=== PATIENT | male | born 1955 | race Caucasian/White ===

== ENCOUNTER → 2017-03-31 09:13 | Outpatient (CLI) | payer OTHER, SELFPAY ==
[2017-03-31 10:08] LABS: AST(SGOT) 39 U/L (15-37); Alanine Aminotransfer ALT/SGPT 70 U/L (16-61); Albumin, Serum 3.8 g/dL (3.2-5.0); Alkaline Phosphatase 96 U/L (45-117); Anion Gap 9 (5-15); BUN 17 mg/dL (7-18); BUN/Creat Ratio 14.2 RATIO (10-20); Calcium,Total 8.9 mg/dL (8.5-10.1); Chloride 97 mmol/L (98-107); Cholesterol 205 mg/dL (200); EST Glomerular Filtration Rate 65 mL/min (>60); Est Glom Filt Rate - Afr Amer 78 mL/min (>60); Globulin 3.7 g/dL (2.2-4.2); Glucose 210 mg/dL (74-106); High Density Lipoprotein 35 mg/dL; Potassium 4.3 mmol/L (3.5-5.1); Protein, Total 7.5 g/dL (6.4-8.2); Sodium Level 133 mmol/L (136-145); Triglycerides 242 mg/dL; Very Low Density Lipoprotein 48 mg/dL (5-40)
[2017-03-31 10:26] LABS: Hemoglobin A1c 9.1 % (4.2-6.3)
== END ==
PROVIDERS: Visit Provider Preventive Medicine Occupational Medicine
DX: E78.4 Other hyperlipidemia (principal); E13.42 Other specified diabetes mellitus with diabetic polyneuropathy; Z12.5 Encounter for screening for malignant neoplasm of prostate
CPT/HCPCS: 36415; 80053; 80061; 83036; 84153; G0103

== ENCOUNTER → 2017-05-30 10:50 | Outpatient (CLI) | payer OTHER, SELFPAY ==
--- NOTE | 2017-05-30 10:54 | RAD_ITS ---
STUDY: X-RAY CHEST REASON FOR EXAM: Male, 62 years old. Evaluation for pneumonia. TECHNIQUE: PA and lateral views of the chest. COMPARISON: None. FINDINGS: The lungs are clear and expanded. There is no demonstrated pleural abnormality. Normal size heart. Normal mediastinum and victorino. Normal visualized pulmonary arteries. There is atherosclerotic calcification of the aortic arch with tortuosity. There are diffuse degenerative changes of the visualized thoracic spine. Normal visualized ribs, clavicles, and shoulders. There is no demonstrated abnormality of the visualized soft tissue structures of the upper abdomen. RAD/Chest PA and Lateral IMPRESSION: No acute cardiopulmonary findings. Negative for consolidation, focal atelectasis, cardiomegaly or pleural effusion. Electronically Signed: Swapna Nair MD at 23:27 EDT , Service support ,
== END ==
PROVIDERS: Family Provider Family Medicine; PCP Family Medicine; Visit Provider Family Medicine
DX: J18.9 Pneumonia, unspecified organism (principal)
CPT/HCPCS: 71046

== ENCOUNTER → 2017-06-04 08:51 | Outpatient (CLI) | payer OTHER, SELFPAY ==
[2017-06-04 10:10] LABS: Hemoglobin A1c 9.6 % (4.2-6.3)
[2017-06-04 10:12] LABS: AST(SGOT) 26 U/L (15-37); Alanine Aminotransfer ALT/SGPT 44 U/L (16-61); Albumin, Serum 3.7 g/dL (3.2-5.0); Alkaline Phosphatase 86 U/L (45-117); Anion Gap 10 (5-15); BUN 21 mg/dL (7-18); BUN/Creat Ratio 15.2 RATIO (10-20); Calcium,Total 8.8 mg/dL (8.5-10.1); Chloride 97 mmol/L (98-107); Cholesterol 178 mg/dL (200); Creatinine, Serum 1.38 mg/dL (0.70-1.30); EST Glomerular Filtration Rate 55 mL/min (>60); Est Glom Filt Rate - Afr Amer 67 mL/min (>60); Globulin 3.6 g/dL (2.2-4.2); Glucose 210 mg/dL (74-106); High Density Lipoprotein 28 mg/dL; Potassium 4.4 mmol/L (3.5-5.1); Protein, Total 7.3 g/dL (6.4-8.2); Sodium Level 138 mmol/L (136-145); Thyroid Stim Hormone (TSH) 2.58 uIU/mL (0.358-3.74); Triglycerides 347 mg/dL; Very Low Density Lipoprotein 69 mg/dL (5-40)
== END ==
PROVIDERS: Family Provider Family Medicine; PCP Family Medicine; Visit Provider Family Medicine
DX: E11.9 Type 2 diabetes mellitus without complications (principal); R97.20 Elevated prostate specific antigen [PSA]; Z12.5 Encounter for screening for malignant neoplasm of prostate
CPT/HCPCS: 36415; 80053; 80061; 83036; 84403; 84443

== ENCOUNTER → 2018-04-03 09:13 | Outpatient (CLI) | payer MEDICARE, OTHER, SELFPAY ==
[2018-04-03 10:41] LABS: Anion Gap 8 (5-15); BUN 23 mg/dL (7-18); BUN/Creat Ratio 17.4 RATIO (10-20); Calcium,Total 9.1 mg/dL (8.5-10.1); Chloride 100 mmol/L (98-107); Cholesterol 211 mg/dL (200); Creatinine, Serum 1.32 mg/dL (0.70-1.30); EST Glomerular Filtration Rate 58 mL/min (>60); Est Glom Filt Rate - Afr Amer 70 mL/min (>60); Glucose 123 mg/dL (74-106); High Density Lipoprotein 28 mg/dL; PSA,Total - Annual Screen 6.41 ng/mL (0.00-4.00); Potassium 4.7 mmol/L (3.5-5.1); Sodium Level 135 mmol/L (136-145); Triglycerides 375 mg/dL; Very Low Density Lipoprotein 75 mg/dL (5-40)
== END ==
PROVIDERS: Family Provider Family Medicine; PCP Family Medicine; Visit Provider Family Medicine
DX: I10 Essential (primary) hypertension (principal); E78.5 Hyperlipidemia, unspecified; E11.9 Type 2 diabetes mellitus without complications; R97.20 Elevated prostate specific antigen [PSA]; Z12.5 Encounter for screening for malignant neoplasm of prostate
CPT/HCPCS: 36415; 80048; 80061; 84153; G0103

== ENCOUNTER → 2018-04-22 08:57 | Outpatient (CLI) | payer MEDICARE, OTHER, SELFPAY ==
--- NOTE | 2018-04-22 09:02 | CDU_ITS ---
Reason For Study: CAROTID STENOSIS Rt. Velocities/BP Lt. Velocities/BP Prox CCA 83/16 cm/sec. Prox CCA 88/21 cm/sec. Mid CCA 50/15 cm/sec. Mid CCA 80/18 cm/sec. Dist CCA 59/19 cm/sec. Dist CCA 60/14 cm/sec. Prox ICA 24/12 cm/sec. Prox ICA 51/21 cm/sec. Mid ICA 40/16 cm/sec. Mid ICA 61/24 cm/sec. Dist ICA 105/41 cm/sec. Dist ICA 76/28 cm/sec. Distal ICA velocities may be Lt. ICA/CCA = 1.0. overestimated due to tortuosity. Prox ECA 82/15 cm/sec. Rt. ICA/CCA = .81. Lt. Vert. 33/13 cm/sec. Prox ECA 117/20 cm/sec. Rt. Vert. 24/9 cm/sec. Right Extracranial There is intimal thickening but no significant atherosclerotic plaque noted in the right common carotid artery. There is intimal thickening but no significant atherosclerotic plaque noted in the right internal carotid artery. There is heterogeneous, smooth atherosclerotic plaque noted in the right external carotid artery. Antegrade flow is noted in the right vertebral artery. Left Extracranial There is homogeneous, smooth atherosclerotic plaque noted in the left common carotid artery. The left internal carotid artery is not adequately visualized to characterize plaque. There is intimal thickening but no significant atherosclerotic plaque noted in the left external carotid artery. Antegrade flow is noted in the left vertebral artery. There is heterogeneous, irregular atherosclerotic plaque noted in the left bulb. Procedure Carotid Duplex 44451. Technically difficult study due to pt body habitus. Exam performed in department. Interpretation Summary Mild (<50%) stenosis right extracranial internal carotid. Mild (<50%) stenosis left extracranial internal carotid. Flow within the vertebral arteries is antegrade bilaterally. Ordering Physician: Emeterio Painter Referring Physician: NA YATES Performed By: Lindsay Lewis, CARMELA, RVT
== END ==
PROVIDERS: Family Provider Family Medicine; PCP Family Medicine; Referring Provider Ophthalmology; Visit Provider Ophthalmology
DX: H35.82 Retinal ischemia (principal); I65.29 Occlusion and stenosis of unspecified carotid artery
CPT/HCPCS: 93880

== ENCOUNTER → 2018-10-02 | Outpatient (CLI) | payer MEDICARE, OTHER, SELFPAY ==
--- NOTE | 2018-10-02 10:59 | RAD_ITS ---
STUDY: X-RAY - LUMBAR SPINE REASON FOR EXAM: Male, 63 years old. Low back pain x4 days TECHNIQUE: 5 view(s) of the lumbar spine were obtained. COMPARISON: None FINDINGS: Normal lumbar lordosis. There is no substantial scoliosis. There is a normal alignment of the vertebrae. There is multilevel endplate spondylosis of the lumbar vertebrae. There is multi-level degenerative disc disease with multi-level disc space narrowing. There is no demonstrated fracture. The soft tissue structures are unremarkable. RAD/L/S Spine Min 4 Views IMPRESSION: Degenerative changes of the spine, as detailed above. Electronically Signed: Bruce Lawton MD at 22:20 EDT , Service support ,
== END | disposition home or self-care (01) ==
LOC: MTRAD 10:58
PROVIDERS: Family Provider Family Medicine; PCP Family Medicine; Referring Provider Family Medicine; Visit Provider Family Medicine
DX: M54.5 Low back pain (principal)
CPT/HCPCS: 72110

== ENCOUNTER → 2018-10-08 | Outpatient (CLI) | payer MEDICARE, OTHER, SELFPAY ==
[2018-10-08 12:42] LABS: ALB/GLOB Ratio 0.9 RATIO (0.9-2.4); AST(SGOT) 13 U/L (15-37); Alanine Aminotransfer ALT/SGPT 29 U/L (16-61); Albumin, Serum 3.5 g/dL (3.2-5.0); Alkaline Phosphatase 74 U/L (45-117); Anion Gap 2 (5-15); BUN 28 mg/dL (7-18); BUN/Creat Ratio 20.9 RATIO (10-20); Calcium,Total 8.9 mg/dL (8.5-10.1); Chloride 101 mmol/L (98-107); Cholesterol 153 mg/dL (200); Creatinine, Serum 1.34 mg/dL (0.70-1.30); EST Glomerular Filtration Rate 57 mL/min (>60); Est Glom Filt Rate - Afr Amer 69 mL/min (>60); Globulin 3.7 g/dL (2.2-4.2); Glucose 98 mg/dL (74-106); High Density Lipoprotein 33 mg/dL; Protein, Total 7.2 g/dL (6.4-8.2); Sodium Level 135 mmol/L (136-145); Triglycerides 300 mg/dL; Very Low Density Lipoprotein 60 mg/dL (5-40)
== END | disposition home or self-care (01) ==
LOC: MFPLAB 11:04
PROVIDERS: Family Provider Family Medicine; PCP Family Medicine; Referring Provider Family Medicine; Visit Provider Family Medicine
DX: E11.9 Type 2 diabetes mellitus without complications (principal)
CPT/HCPCS: 36415; 80053; 80061

== ENCOUNTER → 2019-01-08 09:28 | Outpatient (CLI) | payer MEDICARE, OTHER, SELFPAY ==
[2019-01-08 10:39] LABS: AST(SGOT) 22 U/L (15-37); Alanine Aminotransfer ALT/SGPT 26 U/L (16-61); Albumin, Serum 3.8 g/dL (3.2-5.0); Alkaline Phosphatase 88 U/L (45-117); Anion Gap 6 (5-15); BUN 17 mg/dL (7-18); BUN/Creat Ratio 12.7 RATIO (10-20); Bilirubin, Direct 0.15 mg/dL (0.00-0.30); Calcium,Total 9.2 mg/dL (8.5-10.1); Chloride 104 mmol/L (98-107); Creatinine, Serum 1.34 mg/dL (0.70-1.30); EST Glomerular Filtration Rate 57 mL/min (>60); Est Glom Filt Rate - Afr Amer 69 mL/min (>60); Globulin 3.8 g/dL (2.2-4.2); Glucose 108 mg/dL (74-106); Potassium 4.5 mmol/L (3.5-5.1); Protein, Total 7.6 g/dL (6.4-8.2); Sodium Level 140 mmol/L (136-145)
[2019-01-08 12:45] LABS: Microalbumin:Creatinine Ratio 186.9 mg/g CRE (<30 mg/g CRE)
== END ==
PROVIDERS: Family Provider Family Medicine; PCP Family Medicine; Referring Provider Family Medicine; Visit Provider Family Medicine
DX: E11.9 Type 2 diabetes mellitus without complications (principal)
CPT/HCPCS: 36415; 80048; 80076; 82043; 82570

== ENCOUNTER → 2019-07-09 10:07 | Outpatient (CLI) | payer MEDICARE, OTHER, SELFPAY ==
[2019-07-09 13:06] LABS: Anion Gap 7 (5-15); BUN 19 mg/dL (7-18); BUN/Creat Ratio 14.2 RATIO (10-20); Calcium,Total 9.3 mg/dL (8.5-10.1); Chloride 101 mmol/L (98-107); Cholesterol 170 mg/dL (200); Creatinine, Serum 1.34 mg/dL (0.70-1.30); EST Glomerular Filtration Rate 57 mL/min (>60); Est Glom Filt Rate - Afr Amer 69 mL/min (>60); Glucose 116 mg/dL (74-106); High Density Lipoprotein 33 mg/dL; PSA,Total - Annual Screen 9.96 ng/mL (0.00-4.00); Potassium 4.3 mmol/L (3.5-5.1); Sodium Level 136 mmol/L (136-145); Thyroid Stim Hormone (TSH) 1.77 uIU/mL (0.358-3.74); Triglycerides 178 mg/dL; Very Low Density Lipoprotein 36 mg/dL (5-40)
== END ==
PROVIDERS: PCP Family Medicine; Referring Provider Family Medicine; Visit Provider Family Medicine
DX: E11.9 Type 2 diabetes mellitus without complications (principal); R97.20 Elevated prostate specific antigen [PSA]; Z12.5 Encounter for screening for malignant neoplasm of prostate
CPT/HCPCS: 36415; 80048; 80061; 84153; 84443; G0103

== ENCOUNTER → 2019-08-17 14:28 | Outpatient (CLI) | payer MEDICARE, OTHER, SELFPAY ==
--- NOTE | 2019-08-17 | IMM_PTH ---
PATIENT: ROSY BOB LOC: [facility] U#:[id number] AGE/SX: 70/M ROOM: RE08/17/[address]: Dr. Dell Brown MD : 1955 BED: DIS: SPEC #: [id number] RECD: 08/18/19 13:37 STATUS: MELANIE REQ #: [id number] DISHA: 08/17/19 00:[address]: Dell Brown DEPT: IMMUNOHISTOCHEMISTRY RECD BY: Beatriz Villaseñor ENTERED: 08/18/19 13:39 SP TYPE: IMMUNO OTHR DR: Dr. Jak Yu MD Tissues: B - PROSTATE RIGHT C - PROSTATE RIGHT D - PROSTATE LEFT F - PROSTATE LEFT Procedures: 34BE12 (add) P40 (add) PSAP (add) 34BE12 (initial) PHYSICIAN & INSTITUTION [place] [id number] SPECIMEN INFORMATION: Tissue Source: B - Right prostate, mid, C - Right prostate, base, D - Left prostate, apex, F - Left prostate, base Clinical Info: Elevated PSA Specimen Number: [id number] B, C, D & F CPT code: 42605, 68158 x11 METHODOLOGY: Deparaffinized sections of prefer/formalin-fixed tissue or PAP/DQ stained slides are incubated with monoclonal/polyclonal antibodies/oligonucleotide probes. Localization is made via biotin free immunoperoxidase method. Appropriate controls are performed and reacted as expected. Results on target cell population are indicated in the following table: RESULTS: ANTIBODY / CLONE RESULT Block B 34BE12 (34BE12) negative P40 (BC28) negative PSAP (PASE/4LJ) positive Block C 34BE12 (34BE12) negative P40 (BC28) negative PSAP (PASE/4LJ) positive Block D 34BE12 (34BE12) negative P40 (BC28) negative PSAP (PASE/4LJ) positive Block F 34BE12 (34BE12) negative P40 (BC28) negative PSAP (PASE/4LJ) positive These tests were developed and their performance characteristics determined by [facility]. They may not have been cleared or approved by the U.S. Food and Drug Administration. The FDA has determined that such clearance or approval is not necessary. The above immunohistochemical/dualISH markers are ordered and reviewed by the Pathologist. INTERPRETATION: B. Right prostate, mid, core biopsy: Adenocarcinoma. C. Right prostate, base, core biopsy: Adenocarcinoma. D. Left prostate, apex, core biopsy: Adenocarcinoma. F. Left prostate, base, core biopsy: Adenocarcinoma. AM:kulwant 08/19/19
--- NOTE | 2019-08-17 | PROSBIL_PTH ---
PATIENT: ROSY BOB LOC: [facility] U#:[id number] AGE/SX: 70/M ROOM: RE08/17/[address]: Dr. Dell Brown MD : 1955 BED: DIS: SPEC #: [id number] RECD: 08/17/19 14:32 STATUS: MELANIE VLADIMIR #: [id number] DISHA: 08/17/19 00:[address]: Dell Brown DEPT: SURGICAL PATHOLOGY RECD BY: Mich Wagner ENTERED: 08/17/19 14:32 SP TYPE: PROST BX SUSANNAH DR: Dr. Jak Yu MD Tissues: A - PROSTATE RIGHT B - PROSTATE RIGHT C - PROSTATE RIGHT D - PROSTATE LEFT E - PROSTATE LEFT F - PROSTATE LEFT Procedures: PROSTATE BX HEADER OPERATION: Prostate biopsy PRE-OP DIAGNOSIS: Elevated PSA TISSUE SUBMITTED: A - Right apex, B - Right mid, C - Right base, D - Left apex, E - Left mid, F - Left base MICROSCOPIC DIAGNOSIS A. Right prostate, apex, core biopsy: Benign prostatic tissue. B. Right prostate, mid, core biopsy: Adenocarcinoma. [place] grade: 8 (5+3) Cores involved: 2 out of 2 Tissue involved: 75% Greatest tumor length: 10 mm Perineural invasion: Present See comment. C. Right prostate, base, core biopsy: Adenocarcinoma. Koby grade: 8 (5+3) Cores involved: 2 out of 2 Tissue involved: 95% Greatest tumor length: 13 mm Perineural invasion: Present See comment. D. Left prostate, apex, core biopsy: Adenocarcinoma. Koby grade: 6 (3+3) Cores involved: 1 out of 1 Tissue involved: 2% Greatest tumor length: 0.5 mm Perineural invasion: Present See comment. E. Left prostate, mid, core biopsy: Benign prostatic tissue. F. Left prostate, base, core biopsy: Adenocarcinoma. Koby grade: 8 (5+3) Cores involved: 1 out of 2 Tissue involved: 40% Greatest tumor length: 6.5 mm, discontinuous Perineural invasion: Present See comment. AM:kulwant 08/18/19 COMMENT B, C, D & F - Immunohistochemistry ([id number]) supports the above diagnosis. Case has been reviewed in consultation with Dr. Lockwood who concurs with the above diagnosis. IDC:SJ MICROSCOPIC DESCRIPTION Slides are reviewed. GROSS DESCRIPTION A - Received is one container designated prostate, right apex. The specimen consists of one elongated fragment of light echols-white soft tissue measuring 8 mm in length and 0.1 cm in diameter. The specimen is totally submitted in one cassette. B - Received is one container designated prostate, right mid. The specimen consists of two elongated fragments of light echols-white soft tissue each measuring 1 cm in length and 0.1 cm in diameter. The specimen is totally submitted in one cassette. C - Received is one container designated prostate, right base. The specimen consists of two elongated fragments of light echols-white soft tissue each measuring 1.5 cm in length and 0.1 cm in diameter. The specimen is totally submitted in one cassette. D - Received is one container designated prostate, left apex. The specimen consists of one elongated fragment of light echols-white soft tissue measuring 1 cm in length and 0.1 cm in diameter. The specimen is totally submitted in one cassette. E - Received is one container designated prostate, left mid. The specimen consists of two elongated fragments of light echols-white soft tissue each measuring 1 cm in length and 0.1 cm in diameter. The specimen is totally submitted in one cassette. F - Received is one container designated prostate, left base. The specimen consists of two elongated fragments of light echols-white soft tissue each measuring 1 cm in length and 0.1 cm in diameter. The specimen is totally submitted in one cassette. / AM:kulwant 08/17/19 TC:0 [facility]: [id number]
== END ==
PROVIDERS: PCP Family Medicine; Visit Provider Urology
DX: R97.20 Elevated prostate specific antigen [PSA] (principal)
CPT/HCPCS: 88305; 88341; 88342; G0416

== ENCOUNTER → 2019-09-06 10:26 | Outpatient (CLI) | payer MEDICARE, OTHER, SELFPAY ==
--- NOTE | 2019-09-06 10:30 | NM_ITS ---
CLINICAL: 64-year-old male with reported history of carcinoma of the prostate. WHOLE BODY 99m Tc MDP RADIONUCLIDE BONE SCINTIGRAPHY COMPARISON: Plain film radiograph report lumbar spine 10/02/2018 FINDINGS: Following the intravenous administration of approximately 25.0 mCi of 99m Tc MDP, whole body bone images reveal: 1. Increased radiopharmaceutical concentration is identified in the upper-mid cervical spine posteriorly on the left, lower cervical spine posteriorly on the right, sternoclavicular, acromioclavicular and glenohumeral compartments of both shoulders, first, seventh, ninth-10th thoracic, second and third lumbar vertebra, left posterior sacrum, bilateral visualized wrists, knees bilaterally, left ankle, the right-left midfoot. 2. The remaining skeletal structures are scintigraphically unremarkable with normal-appearing renal images and urinary bladder activity identified. NM/Bone Scan Whole Body IMPRESSION: 1. The increase in radiopharmaceutical concentration identified in the cervical, thoracic and lumbar spine, bilateral shoulders, sacrum, both wrists, right-left knees, the left ankle, midfoot bilaterally is commensurate with degenerative arthritis. Plain film radiography correlation may be of benefit in the region of the left ankle. 2. There is no definitive typical scintigraphic evidence of diffuse axial skeletal metastatic disease on the current examination. Electronically Signed: Juan Pablo Soriano DO at 22:26 EDT Tel , Service support ,
== END ==
PROVIDERS: PCP Family Medicine; Referring Provider Urology; Visit Provider Urology
DX: C61 Malignant neoplasm of prostate (principal)
CPT/HCPCS: 78306

== ENCOUNTER → 2019-09-09 14:50 | Outpatient (CLI) | payer MEDICARE, OTHER, SELFPAY ==
--- NOTE | 2019-09-09 15:12 | CT_ITS ---
STUDY: CT ABDOMEN AND PELVIS WITH CONTRAST REASON FOR EXAM: Male, 64 years old. Newly diagnosed prostate cancer. RADIATION DOSAGE (If Supplied By Facility): CTDIvol = ( 21.66 ) mGy, DLP = ( 2286.95 ) mGycm TECHNIQUE: Transaxial images were obtained from the dome of the diaphragm to the symphysis pubis without oral contrast. IV 100mL Isovue-300 was administered. Sagittal and coronal images were reconstructed. Individualized dose optimization techniques were used for this CT. COMPARISON: None. FINDINGS: The visualized lung bases are unremarkable. The visualized portions of the heart are within normal limits. Coronary artery calcifications are noted. Normal liver. Normal gallbladder and extrahepatic biliary system. Normal spleen. Normal pancreas. Normal bilateral adrenal glands. Normal right kidney. Normal left kidney. Normal ureters. Normal visualized stomach. Normal small intestine. Normal colon. The appendix is visualized and appears normal. Minimal atherosclerotic changes of the thoracic aorta without aneurysm. Normal inferior vena cava. Normal retroperitoneum. Normal urinary bladder. The prostate is mild enlarged. There is no evidence of local extension. There is nonspecific subcentimeter adenopathy. The largest node on the right measures 1.2 x 0.8 x 0.9 cm (image 98 series 2. The largest node on the left measures 1.1 x 1.1 x 1.0 cm present image 96, series 2). There is no free air or free fluid within the peritoneal cavity. No stranding in subcutaneous fat of the anterior abdominal wall. Question subcutaneous injection. There is a right inguinal hernia omental fat. There are degenerative changes of the lumbar spine with mild scoliosis. There is marked disc space narrowing and sclerosis at the L1-2 disc level. No lytic or blastic lesions are seen within the visualized osseous structures. CT/Abdomen/Pelvis WITH Contrast IMPRESSION: 1. Enlarged prostate. 2. Small bilateral pelvic lymph nodes. 3. No evidence of bony metastases or distant spread. 4. Right inguinal hernia. Electronically Signed: Kurt Danielle DO at 16:36 EDT Tel [phone], Service support ,
[2019-09-09 15:26] LABS: CREATININE FINGERSTICK 0.8 mg/dL (0.70-1.30)
== END ==
PROVIDERS: PCP Family Medicine; Referring Provider Urology; Visit Provider Urology
DX: C61 Malignant neoplasm of prostate (principal)
CPT/HCPCS: 74177; Q9967

== ENCOUNTER 2019-11-10 05:56 | Day surgery (SDC) | payer MEDICARE, OTHER, SELFPAY ==
--- NOTE | 2019-11-03 10:39 | EKG12_ITS ---
Test Reason : PREOP Blood Pressure : / mmHG Vent. Rate : 072 BPM Atrial Rate : 072 BPM P-R Int : 184 ms QRS Dur : 116 ms QT Int : 390 ms P-R-T Axes : 229 246 155 degrees QTc Int : 427 ms Unusual P axis, possible ectopic atrial rhythm Abnormal ECG Confirmed by KARUNA EDWARD, LEIGH ([id number]), rewrite editor LYNDA PINEDA ([id number]) on 11/04/2019 3:40:43 PM Referred By: Dell Brown Confirmed By:KELSEA BECKMAN MD
[2019-11-03 11:34] LABS: Hematocrit 45.9 % (40-54); Mean Corp Hgb Conc 32.7 g/dL (32-36); Mean Corpuscular Hgb 32.8 pg (27.0-32.0); Mean Corpuscular Volume 100.2 fL (80-94); Mean Platelet Vol. 9.7 fl (6.2-12.0); Platelet Count 229 K/mm3 (150-450); RBC Distribution Width CV 11.9 % (11.6-14.6); Red Blood Count 4.58 M/mm3 (4.6-6.2); White Blood Count 6.5 K/mm3 (4.4-11.0)
[2019-11-03 11:45] LABS: Anion Gap 6 (5-15); BUN 18 mg/dL (7-18); BUN/Creat Ratio 15.9 RATIO (10-20); Calcium,Total 9.3 mg/dL (8.5-10.1); Chloride 102 mmol/L (98-107); Creatinine, Serum 1.13 mg/dL (0.70-1.30); EST Glomerular Filtration Rate 69 mL/min (>60); Est Glom Filt Rate - Afr Amer 83 mL/min (>60); Glucose 111 mg/dL (74-106); Potassium 4.4 mmol/L (3.5-5.1); Sodium Level 137 mmol/L (136-145)
[2019-11-03 12:15] LABS: Hemoglobin A1c 6.9 % (3.8-5.6)
[2019-11-10] VITALS (12 sets, daily range): BP systolic 117–154; BP diastolic 58–96; PULSE 67–85; RESP 16–20; TEMP 36.6–37.7; O2SAT 92–99; BMI 47.8; BMI 47.9
--- NOTE | 2019-11-10 | PROS_PTH ---
PATIENT: ROSY BOB LOC: [facility] [place] U#:[id number] AGE/SX: 64/M ROOM: RE11/10/[address]: Dr. Dell Brown MD : 1955 BED: DIS: 11/11/2019 SPEC #: [id number] RECD: 11/10/19 10:27 STATUS: MELANIE RE #: [id number] DISHA: 11/10/19 00:[address]: Dell Brown DEPT: SURGICAL PATHOLOGY RECD BY: Beatriz Villaseñor ENTERED: 11/10/19 10:56 SP TYPE: TURP OTHR DR: Dr. Jak Yu MD Tissues: A - Prostate, NOS B - Prostate, NOS C - Prostate, NOS D - Lymph node, NOS E - Lymph node, NOS F - Urinary bladder, NOS Procedures: Frozen Section (charge) Surgery Specimen Level IV Surgery Specimen Level HEADER OPERATION: Lap robotic prostatectomy radical, direct right inguinal hernia PRE-OP DIAGNOSIS: Malignant neoplasm prostate, elevated PSA TISSUE SUBMITTED: A - Right lateral margin prostate tissue, B - Right side lateral deeper margin #2, C - Prostate, D - Right pelvic lymph node, E - Left pelvic lymph node, F - Bladder neck margin - permanent FROZEN SECTION DIAGNOSIS A. Right lateral margin, prostate tissue: Positive for carcinoma. B. Right side lateral deep margin #2: Focally positive for carcinoma. DONNY:kulwant 11/10/19 Case has been reviewed in consultation with Dr. Pabon who concurs with the above diagnosis. IDC:AM MICROSCOPIC DIAGNOSIS A. Right lateral margin, prostate tissue: Positive for carcinoma. See comment. B. Right side lateral deep margin #2: Positive for carcinoma. See comment. C. Prostate, radical prostatectomy: Prostatic adenocarcinoma. See cancer summary in the comment section. D. Right pelvic lymph node, biopsy: Pieces of adipose tissue, no lymph node tissue is identified. E. Left pelvic lymph node, biopsy: A piece of adipose tissue, no lymph node tissue is identified. F. Bladder neck margin, biopsy: A piece of fibroadipose and fibroconnective tissue, negative for carcinoma. DONNY:kulwant 11/12/19 COMMENT A. The focus of carcinoma measures 0.5 cm in greatest dimension. B. The focus of carcinoma measures 0.4 cm in greatest dimension. PROSTATE CANCER (RADICAL) SUMMARY (Including specimens A-F): Procedure: Radical Prostatectomy Prostate Size: Weight: 86 gm Size: 4.5 cm craniocaudally, 5 cm transversely and 3.5 cm anterior-posteriorly Histologic grade: Grade group 4 (Koby score 5+3=8) Intraductal Carcinoma: Estimated percentage of prostate involved by tumor: ~50% Extraprostatic Extension: Present, nonfocal Location of extraprostatic extension: Right lateral and posterior margin. Urinary Bladder Neck Invasion: Not identified Seminal Vesicle Invasion: Present, right and left seminal vesicle Lymphvascular Invasion: Not identified Perineural Invasion: Present, frequent Margins: Margins are involved by invasive carcinoma. Non-limited (greater than 3 mm) Focality: Multifocal Location of positive margin: Right posterior and lateral margins and apical margin. [place] grade at positive margin: Koby grade 5 Regional Lymph Nodes: No lymph nodes are found. Treatment Effect: No known presurgical therapy. Additional Pathologic Findings: Chronic inflammation. - Benign glandular hyperplasia, glandular and stromal type. Ancillary studies: Not performed. PATHOLOGIC STAGE: pT3a+b pNTx Mx The above summary is in compliance with [employer] [place] [employer] (CAP) Cancer Protocols Checklist and [place] Joint Committee on Cancer (AJCC), Staging Manual, 8th Ed. The tumor involves both right and left lobes, more extensive in the right lobe. Please make reference to previous specimen ([id number]) right prostate, mid, right prostate, base and left prostate, apex, left prostate, apex with diagnosis of adenocarcinoma. Case has been reviewed in consultation with Dr. Pabon who concurs with the above diagnosis. IDC:AM MICROSCOPIC DESCRIPTION Slides are reviewed. GROSS DESCRIPTION A - Received fresh for frozen section diagnosis labeled with the patient's name is a specimen designated right lateral margin prostate tissue. The specimen consists of two irregular fragments of echols-pink soft tissue that in aggregate measure 1.7 x 0.6 x 0.3 cm. The entire specimen is submitted for frozen section diagnosis in one cassette. / : 11/10/19 B - Received fresh for frozen section diagnosis labeled with the patient's name is a specimen designated right side lateral deeper margin #2. The specimen consists of a piece of echols-pink soft tissue measuring 2.7 x 2.5 x 0.3 cm. The entire specimen is submitted for frozen section diagnosis in two cassettes. / : 11/10/19 C - Received in fixative is one container labeled with the patient's name and designated prostate. The specimen consists of a radical prostatectomy specimen consisting of prostate with bilateral seminal vesicles weighing 86 gm. The prostate measures 4.5 cm craniocaudally, 5 cm transversely and 3.5 cm anterior-posteriorly. The right seminal vesicle measures 3.5 x 1.5 x 1 cm and the right vas deferens measures 3.5 cm in length and 0.5 cm in diameter. The left seminal vesicle measures 3 x 2.5 x 1 cm and the left vas deferens measures 3.5 cm in length and 0.5 cm in diameter. Sections do not reveal any obvious mass lesion. [employer] sections are submitted in 20 cassettes as follows: 1 - right seminal vesicle and vas deferens, 2 - left seminal vesicle and vas deferens, 3 - apical (urethral) margin, enface, 4?- bladder base/basal portion of prostate margin, enface, 5-10 - apical portion prostate, 11-14 - middle portion prostate, 15-20 - basal portion prostate. / : 11/11/19 D - Received in fixative is one container labeled with the patient's name and designated right pelvic lymph node. The specimen consists of two pieces of yellow adipose tissue measuring 2.5 x 2 x 0.3 cm and 3 x 2.5 x 0.2 cm. No obvious lymph node tissue is identified. The entire specimen is submitted in two cassettes with each cassette containing one piece of tissue. / : 11/11/19 E - Received in fixative is one container labeled with the patient's name and designated left pelvic lymph node. The specimen consists of a piece of yellow adipose tissue measuring 5 x 3 x 0.5 cm. No obvious lymph node tissue is identified. The entire specimen is submitted in two cassettes. / Johann 11/11/19 F - Received in fixative is one container labeled with the patient's name and designated bladder neck margin. The specimen consists of a piece of echols soft tissue measuring 1 x 0.4 x 0.3 cm. The entire specimen is submitted in one cassette. / Johann 11/11/19 TC:0 CPT: 41550, 77445 x5
[2019-11-10] MEDS: Lactated Ringers 1,000 ML 100 ML IV ×4 (07:00→15:30)
[2019-11-10 07:15] LABS: Bedside Glucose 162 mg/dL (70-110)
--- NOTE | 2019-11-10 07:27 | PCM.HP.STD ---
History of Present Illness Date of Admission: 11/10/19 Chief Complaint: Prostate cancer The patient is a 64 year old male with history of prostate cancer discussed options of management he wants to proceed with a robotic radical prostatectomy bilateral nerve sparing were also going to do lymph node dissection. Past Medical History Allergies No Known Allergies Allergy (Verified 11/10/19 06:25) Home Medications: Ambulatory Orders Medication Instructions Recorded Amlodipine Besylate [Norvasc] 5 mg PO QHS 11/01/19 Aspirin E.C. [Ecotrin] 325 mg PO DAILY@0800 11/01/19 Atorvastatin Calcium [Lipitor] 40 mg PO QHS 11/01/19 Benazepril HCl [Lotensin] 40 mg PO DAILY 11/01/19 Carvedilol [Coreg] 12.5 mg PO BID 11/01/19 Dapagliflozin Propanediol [Farxiga] 5 mg PO DAILY 11/01/19 Dulaglutide [Trulicity] 1.5 mg SQ SA 11/01/19 Flaxseed Oil [[place]-3 Flaxseed Oil] 1,000 mg PO DAILY 11/01/19 Fluticasone 0.05% [Flonase Nasal 1 spray NASAL DAILY PRN 11/01/19 [place]] Furosemide [Lasix] 20 mg PO DAILY 11/01/19 Garlic 1 ea PO DAILY 11/01/19 Insulin Detemir [Levemir] 20 unit SQ QHS 11/01/19 Insulin Detemir [Levemir] 60 unit SQ DAILY 11/01/19 Multivitamin with Minerals 1 ea PO DAILY 11/01/19 [Multiple Vitamin] Surgical History: no surgical history Smoking Status: Never smoker Tobacco Use: Non-smoker Review of Systems Constitutional: Denies: Chills, Fever, Weight Change HEENT: Denies: Head Aches, Sinus Congestion, Sinus Drainage Cardiovascular: Denies: Chest Pain, Palpitations Respiratory: Denies: Cough, Shortness of breath at rest, Sputum production Gastrointestinal: Denies: Abdominal Pain, Nausea, Vomiting Genitourinary: Denies: Dysuria Musculoskeletal: Denies: Joint Pain, Joint Tenderness Skin: Denies: Rash, Wounds Neurological: Denies: Numbness, Tingling, Focal weakness Psychiatric: Denies: Anxiety, Depression, Homicidal Ideations, Suicidal Ideations Hematologic/ Lymphatic: Denies: Easy Bruising, Easy Bleeding VTE Information - Inpt Only VTE Present on Admission: No VTE Mechan Device Prophylaxis: SCD's - Physical Exam Vitals/I&O's: Vital Signs Temp Pulse Resp BP Pulse Ox 98.8 F 75 16 138/68 H 96 11/10/19 06:31 11/10/19 06:31 11/10/19 06:31 11/10/19 06:31 11/10/19 06:31 Oxygen Delivery Method Room Air Weight: 151.3 kg Body Mass Index (BMI) 47.8 Intake and Output for Last 24 Hours 11/08/19 11/09/19 11/10/19 23:59 23:59 23:59 Intake Total 3.33 / 3.33 Balance 3.33 / 3.33 General: Alert, Oriented x3, Cooperative HEENT: Atraumatic, PERRLA, EOMI, Normocephalic Neck: Supple, No JVD, Negative Carotid Bruits Lungs: Clear to auscultation, Normal air movement Cardiovascular: Regular rate, No murmurs Abdomen: Bowel Sounds Present, Soft, Non Tender Extremities: No edema, Capillary Refill Less than 3 Seconds Skin: No rashes, No breakdown Musculoskeletal: No Tenderness to Palpation of Joints or Extremities Neurological: Cranial nerves II-XII grossly intact Psych/Mental Status: Normal Affect, Appropriate Laboratory Results 11/10/19 06:58: POC Glucose 162 H Current Medications Cefazolin Sodium 3 gm/ Sodium (Chloride) 115 mls @ 150 mls/hr IV PREOP ONE Stop: 11/10/19 07:55 Lactated Ringer's () 1,000 mls @ 100 mls/hr IV .Q10H VANDANA Last Admin: 11/10/19 07:04 Dose: 100 mls/hr Documented by: Assessment/Plan Plan to proceed with radical prostatectomy with bilateral nerve sparing and bilateral lymph node dissection.
--- NOTE | 2019-11-10 07:32 | PCM.DC.URO ---
Discharge Diet: No Restrictions, Light diet - advance as tolerated Discharge Activity: Return to Normal Activity, May Not Drive - for 2 days., May not drive while taking narcotic pain medications. Additional Activity Instructions:: Please be aware that pain medications may cause nausea. You should typically eat light foods as you take your pain medication. Pain medication may cause constipation, if this is a problem for you, please discuss with your doctor. Call your doctor if your incision/area has: Continuous Slow Oozing, Sudden Increased Bleeding, Increased Pain/ Swelling, Increased Redness, Foul Smelling Discharge, Swelling at the incision site Call your doctor if you observe: Fever of 101 or Higher Suture Line Care: Avoid Pulling/Pushing, Avoid Pinching/Bending Catheter: Chaudhari to leg bag, Chaudhari to large bag Drain: [place] Allergies/Adverse Reactions: Allergies No Known Allergies Allergy (Verified 11/10/19 06:25) Medications to take at Discharge Amlodipine Besylate [Norvasc] 5 mg PO QHS 11/01/19 Aspirin E.C. [Ecotrin] 325 mg PO DAILY@0800 11/01/19 Atorvastatin Calcium [Lipitor] 40 mg PO QHS 11/01/19 Benazepril HCl [Lotensin] 40 mg PO DAILY 11/01/19 Carvedilol [Coreg (Beta Vazquez)] 12.5 mg PO BID 11/01/19 Dapagliflozin Propanediol [Farxiga] 5 mg PO DAILY 11/01/19 Dulaglutide [Trulicity] 1.5 mg SQ SA 11/01/19 Flaxseed Oil [[place]-3 Flaxseed Oil] 1,000 mg PO DAILY 11/01/19 Fluticasone 0.05% [Flonase Nasal [place]] 1 spray NASAL DAILY PRN 11/01/19 Furosemide [Lasix] 20 mg PO DAILY 11/01/19 Garlic 1 ea PO DAILY 11/01/19 Insulin Detemir [Levemir] 20 unit SQ QHS 11/01/19 Insulin Detemir [Levemir] 60 unit SQ DAILY 11/01/19 Multivitamin with Minerals [Multiple Vitamin] 1 ea PO DAILY 11/01/19 Ciprofloxacin [Cipro] 500 mg PO BID #14 tab 11/10/19 Docusate Sodium [Colace] 100 mg PO BID #20 cap 11/10/19 Hydrocodone/Acetaminophen [[place] 5-325 Tablet] 1 each PO Q4H PRN PRN 5 Days #14 tablet 11/10/19 The following prescriptions were given: Ciprofloxacin [Cipro] 500 mg PO BID #14 tab Transmission Status: Pending to [facility] Docusate Sodium [Colace] 100 mg PO BID #20 cap Transmission Status: Pending to [facility] Hydrocodone/Acetaminophen [[place] 5-325 Tablet] 1 each PO Q4H PRN PRN 5 Days #14 tablet PRN Reason: Pain Score 1-10/10 Transmission Status: Sent to [facility] Primary Care Physician: Shamir Yu MD [Primary Care Provider] - Test Results: Test results from this visit will be discussed in further detail at your follow-up appointment, if applicable. Please Follow Up With: Dell Brown MD When: in 2 weeks, please call to make an appointment.
[2019-11-10] MEDS: Bupivacaine Mpf 0.5% 30 ML VIAL (08:01)
--- NOTE | 2019-11-10 12:02 | OP.PCM_ITS ---
Report of Operation Date of Procedure: 11/10/19 Pre-Operative Diagnosis: Prostate cancer Post-Operative Diagnosis: Same Surgery/Procedure Performed:: Laparoscopic robotic assisted radical prostatectomy, bilateral lymph node dissection, right direct hernia repair Description of Surgical Findings:: 64-year-old male was found to have prostate cancer he elected to have undergo radical prostatectomy he is a very large male with a BMI of 47 we did discuss the challenges with doing surgery on obese patients. We talked about the risks of the surgery including loss of erections, and also problems with bladder control after surgery. We also talked about the cancer and the goal is to see if we can clear him of cancer is also a discussed the real possibility he may need radiation after surgery or even chemotherapy or hormone therapy if the can cer is found to be locally advanced. Patient was taken back to the operating room after smooth induction of anesthesia he was placed supine on the table had to use the larger stirrups with the legs was placed on the table he has a BMI of 47 this was an extremely large patient is a very difficult case because of these obesity. Took a lot longer than typical. The penis and testicles were prepped and draped in usual sterile fashion the abdomen was shaved and prepped in usual sterile fashion placed the camera trocar 4 cm above the umbilicus placed the right arm trochars left arm trochars air seal port and suction port patient was placed in full Trendelenburg which he tolerated okay we then got inside the peritoneum first identified that was not can be a possible do a posterior dissection so I then dropped the bladder but the bladder on traction. The space of [place] a lot of fat around the prostate this had to be cleaned off performed lymph node dissection the right side of the pelvis and the left side the pelvis tissue was sent off as a specimen. This tissue appeared to be negative. I then went in the right prostate incised the endopelvic fascia release the prostate from the fashion the right side release approximately fashion the left side but a stitch in the dorsal vein complex and then pulled back to the junction between the bladder and prostate dissected between the bladder and the prostate this dissecting the bladder off the prostate until I reached the seminal vesicles both the left and right seminal vesicles were then released and freed up and the seminal vesicles were transected and the vas deferens was can transected I then started on the right side the prostate started sweeping the neurovascular bundles off the right side the prostate but immediately the neurovascular bundle would not come off it was extremely stuck I then wider went wide at this neurovascular bundle and again it was extremely stuck I then had to use sharp dissection to get the prostate off the right lateral pelvic wall it was extremely stuck so I sent off a piece as a frozen section this came back positive with carcinoma so then I did an extensive dissection and dissected more tissue off the lateral wall the remainder of the tissue this made this nurse for non-nerve sparing in the right side this came back with some microscopic focuses of cancer. I then went to the left side was able to free the nerve bundle on the left side came through the pedicle transected to the pedicle I then came to the apex of the prostate placed in extra stitch in the dorsal vein complex and then transected to the urethra and the prostate was removed put an Endo Catch bag the initial frozen section was sent off and then a second frozen section was sent off and came back with microscopic foci but but but not positive like it was the first time so did not at this point really could not get any more tissue off the right side since I did such a wide dissection. I then did anastomosis between the urethra and the bladder neck this is a very difficult anastomosis took a long time to get the stitches imperfectly and finally got the bladder to the urethra over a catheter in a watertight fashion we flushed the catheter flushed catheter was clear draining well for 10 cc in the balloon then pulled back out he had a direct inguinal hernia on the right side put a mesh plug and then it was a Bard mesh prefix plug reference #[id number] lot was H you see [id number]. After the plug was put in then I close the peritoneum over the plug and then at this point the robot was undocked I closed the camera port which is an 8 mm port in the umbilicus I extracted the prostate through the lateral abdomen and closed that with 0 Vicryl stitches we flushed the catheter flat catheter was flushing well and the pat ient's anesthetic is being reversed case was about 4 hours again very difficult case because the patient's large obese status and also we had a positive margin on the right side. Type of Anesthesia:: General Drains: 20 fr - Admit VTE Documentation VTE Present on Admission: No VTE Mechan Device Prophylaxis: SCD's
[2019-11-10 13:31] LABS: Bedside Glucose 185 mg/dL (70-110)
[2019-11-10] MEDS: Empagliflozin 10 MG Tablet PO (16:35)
[2019-11-10] MEDS: Lisinopril 40 MG Tablet PO (16:35)
[2019-11-10] MEDS: Ketorolac 15 MG/ML Vial IV ×2 (16:35→21:29)
[2019-11-10] MEDS: Furosemide 20 MG Tablet PO (16:35)
[2019-11-10] MEDS: Ciprofloxacin 400 MG/200 ML BAG 200 MG IV (16:35)
[2019-11-10] MEDS: Insulin Lispro 100 UNIT/ML INSULN.PEN SC ×2 (16:39→21:42)
[2019-11-10 17:15] LABS: Bedside Glucose 176 mg/dL (70-110)
[2019-11-10] MEDS: Carvedilol 12.5 MG Tablet PO (21:30)
[2019-11-10] MEDS: Docusate Sodium 100 MG Capsule PO (21:30)
[2019-11-10] MEDS: Atorvastatin Calcium 40 MG Tablet PO (21:31)
[2019-11-10] MEDS: amLODIPine 5 MG Tablet PO (21:31)
[2019-11-10 21:51] LABS: Bedside Glucose 228 mg/dL (70-110)
[2019-11-11] MEDS: Lactated Ringers 1,000 ML 100 ML IV ×2 (02:36→12:14)
[2019-11-11] MEDS: Ciprofloxacin 400 MG/200 ML BAG 200 MG IV (02:37)
[2019-11-11] MEDS: Ketorolac 15 MG/ML Vial IV ×3 (02:39→14:16)
[2019-11-11 02:45] VITALS: BMI 47.9
[2019-11-11 02:57] VITALS: BP 148/76; PULSE 66; RESP 16; TEMP 37.3; O2SAT 99
[2019-11-11] MEDS: Insulin Lispro 100 UNIT/ML INSULN.PEN SC (06:47)
[2019-11-11 07:00] LABS: Bedside Glucose 176 mg/dL (70-110)
[2019-11-11 07:09] VITALS: BMI 47.9
[2019-11-11] MEDS: Multivitamins,Ther W-Minerals Tablet 1 TABLET PO (09:46)
[2019-11-11] MEDS: Carvedilol 12.5 MG Tablet PO (09:47)
[2019-11-11] MEDS: Docusate Sodium 100 MG Capsule PO (09:47)
[2019-11-11] MEDS: Lisinopril 40 MG Tablet PO (09:54)
[2019-11-11] MEDS: Furosemide 20 MG Tablet PO (09:54)
[2019-11-11] MEDS: Empagliflozin 10 MG Tablet PO (09:54)
[2019-11-11 09:58] VITALS: BP 145/76; PULSE 70; RESP 18; TEMP 36.9; O2SAT 97
[2019-11-11 11:09] VITALS: BMI 47.9
[2019-11-11 12:15] LABS: Bedside Glucose 199 mg/dL (70-110)
--- NOTE | 2019-11-11 14:55 | CHAPLAIN ---
Type of Pastoral Visit _x__ Initial Visit ___ Follow-up Visit ___ On-call Visit ___ General Patient Visit ___ Spiritual Assessment ___ Family Conference ___ Bereavement ___ Rapid Response ___ Code Blue ___ Other (describe below) Pastoral Care Referral From _x__ Patient ___ Family ___ Nurse ___ Physician ___ Cabbage Salter ___ Hydraulic Oil Tool Operator ___ Other (describe below) Sacrament/Intervention _x__ Active listening ___ Anointing ___ Religious ___ Bereavement ___ Communion _x__ Rebecca exploration ___ ___ Life review _x__ Prayer ___ Reconciliation ___ Sacrament of Sick ___ Supportive presence ___ Wedding ___ Other (describe below) Pastoral Comments energetic conversation and meeting with this patient who welcomes presence, prayer, and spiritual care; spouse is with him; pt to be discharged today
== END 2019-11-11 15:00 | disposition home or self-care (01) ==
LOC: SDC 05:57 → AC 05:58 → MS3 11-11 10:24
PROVIDERS: Anesthesiology; PCP Family Medicine; Referring Provider Urology; Visit Provider Urology
PROC: 0VT04ZZ Resection of Prostate, Percutaneous Endoscopic Approach (ICD-10-PCS; CPT 55866; principal; 2019-11-10 07:10)
DX: C61 Malignant neoplasm of prostate (principal); K40.90 Unilateral inguinal hernia, without obstruction or gangrene, not specified as recurrent; Z11.59 Encounter for screening for other viral diseases; E11.9 Type 2 diabetes mellitus without complications; I10 Essential (primary) hypertension; E66.9 Obesity, unspecified; Z79.82 Long term (current) use of aspirin; Z79.4 Long term (current) use of insulin; Z79.899 Other long term (current) drug therapy; Z68.42 Body mass index [BMI] 45.0-49.9, adult; E78.2 Mixed hyperlipidemia; G47.31 Primary central sleep apnea
CPT/HCPCS: 00865; 49650; 55866; S2900; 36415; 80048; 82962; 83036; 85027; 86850; 86900; 86901; 87635; 88305; 88309; 88331; 93005; 94762; 99251; C9803; J7120; C1781; G0463; J0744; J2405; U0003

== ENCOUNTER → 2020-02-15 09:53 | Outpatient (CLI) | payer MEDICARE, OTHER, SELFPAY ==
[2019-11-10 15:11] VITALS: BMI 47.8
[2020-02-15 10:58] LABS: AST(SGOT) 28 U/L (15-37); Alanine Aminotransfer ALT/SGPT 44 U/L (16-61); Albumin, Serum 3.9 g/dL (3.2-5.0); Alkaline Phosphatase 115 U/L (45-117); Anion Gap 5 (5-15); BUN 22 mg/dL (7-18); BUN/Creat Ratio 18.2 RATIO (10-20); Calcium,Total 9.1 mg/dL (8.5-10.1); Chloride 100 mmol/L (98-107); Cholesterol 136 mg/dL (200); Creatinine, Serum 1.21 mg/dL (0.70-1.30); EST Glomerular Filtration Rate 64 mL/min (>60); Est Glom Filt Rate - Afr Amer 77 mL/min (>60); Globulin 4.1 g/dL (2.2-4.2); Glucose 155 mg/dL (74-106); High Density Lipoprotein 37 mg/dL; PSA,Total- Diagnostic 1.16 ng/mL (0.0-4.0); Potassium 4.6 mmol/L (3.5-5.1); Sodium Level 134 mmol/L (136-145); Triglycerides 385 mg/dL; Very Low Density Lipoprotein 77 mg/dL (5-40)
== END ==
PROVIDERS: PCP Family Medicine; Referring Provider Urology; Visit Provider Urology
DX: C61 Malignant neoplasm of prostate (principal); E78.5 Hyperlipidemia, unspecified
CPT/HCPCS: 36415; 80053; 80061; 84153

== ENCOUNTER → 2020-04-03 13:04 | Outpatient (CLI) | payer MEDICARE, OTHER, SELFPAY ==
[2019-11-10 15:11] VITALS: BMI 47.8
[2020-04-03 15:15] LABS: Absolute Lymphocyte Count 1.65 X10^3/uL (0.83-4.51); Absolute Neutrophil Count 3.9 X10^3/uL (2.0-7.7); Basophil# 0.02 X10^3/uL; Basophil% 0.3 % (0-1); Eosinophil# 0.28 X10^3/uL; Eosinophils% 4.3 % (0-5); Hematocrit 42.6 % (40-54); Hemoglobin 14.1 g/dL (13.0-16.5); Lymphocyte # 1.65 X10^3/ul (4.0); Lymphocyte % 25.5 % (19-41); Mean Corp Hgb Conc 33.1 g/dL (32-36); Mean Corpuscular Volume 96.8 fL (80-94); Mean Platelet Vol. 9.7 fl (6.2-12.0); Monocyte% 9.3 % (0-10); NRBC Flagged by Analyzer 0 % (0-5); Neutrophil % 60.4 % (47-70); Platelet Count 232 K/mm3 (150-450); RBC Distribution Width CV 12.4 % (11.6-14.6); RBC Distribution Width SD 43.9 fl (35.1-43.9); White Blood Count 6.5 K/mm3 (4.4-11.0)
[2020-04-03 15:42] LABS: Creatinine, Serum 1.06 mg/dL (0.70-1.30); EST Glomerular Filtration Rate 74 mL/min (>60); Est Glom Filt Rate - Afr Amer 90 mL/min (>60); PSA,Total- Diagnostic 0.14 ng/mL (0.0-4.0)
== END ==
PROVIDERS: PCP Family Medicine; Referring Provider Radiology Radiation Oncology; Visit Provider Radiology Radiation Oncology
DX: Z01.818 Encounter for other preprocedural examination (principal); C61 Malignant neoplasm of prostate
CPT/HCPCS: 36415; 82565; 84153; 85025

== ENCOUNTER → 2020-04-04 14:13 | Outpatient (CLI) | payer MEDICARE, OTHER, SELFPAY ==
[2019-11-10 15:11] VITALS: BMI 47.8
--- NOTE | 2020-04-04 14:19 | CT_ITS ---
STUDY: CT PELVIS WITH CONTRAST REASON FOR EXAM: Male, 65 years old. Prostate cancer radiation planning. Prior prostatectomy, diabetes, hypertension. Cystografin used for urethrogram. RADIATION DOSAGE (If Supplied By Facility): CTDIvol = ( 24.62 ) mGy, DLP = ( 887.24 ) mGycm TECHNIQUE: Transaxial imaging of the pelvis was performed without oral contrast. Oral and amp; IV READII-CAT and amp; 100ML ISOVUE 300 was administered intravenously. Individualized dose optimization techniques were used for this CT. COMPARISON: Comparison is made with prior study dated 09/09/2019. FINDINGS: Normal urinary bladder. The urethra is unremarkable. The patient is status post prostatectomy. Metallic radiation seeds are seen within the prostate bed. Normal visualized small intestine. Normal visualized colon. There is no pelvic fluid. There is no pelvic lymphadenopathy or mass lesion. There is diffuse atherosclerotic calcification of the pelvic arteries. There is a right inguinal hernia containing fat. Normal osseous structures. CT/CT Pelvis W/CONT Therapy IMPRESSION: Status post prostatectomy. Electronically Signed: Sujit Tolbert MD at 15:08 EST , Service support ,
== END ==
PROVIDERS: PCP Family Medicine; Referring Provider Radiology Radiation Oncology; Visit Provider Radiology Radiation Oncology
DX: C61 Malignant neoplasm of prostate (principal)
CPT/HCPCS: 51600; 72193; Q9965; Q9967

== ENCOUNTER → 2020-05-03 12:02 | Outpatient (CLI) | payer MEDICARE, OTHER, SELFPAY ==
[2019-11-10 15:11] VITALS: BMI 47.8
[2020-05-03 15:17] LABS: Absolute Lymphocyte Count 0.52 X10^3/uL (0.83-4.51); Absolute Neutrophil Count 2.4 X10^3/uL (2.0-7.7); Basophil# 0.01 X10^3/uL; Basophil% 0.3 % (0-1); Eosinophils% 5.6 % (0-5); Hematocrit 40.1 % (40-54); Hemoglobin 13.1 g/dL (13.0-16.5); Lymphocyte # 0.52 X10^3/ul (4.0); Lymphocyte % 14.6 % (19-41); Mean Corp Hgb Conc 32.7 g/dL (32-36); Mean Corpuscular Hgb 32.9 pg (27.0-32.0); Mean Corpuscular Volume 100.8 fL (80-94); Mean Platelet Vol. 9.4 fl (6.2-12.0); Monocyte% 11.3 % (0-10); NRBC Flagged by Analyzer 0 % (0-5); Neutrophil % 67.6 % (47-70); POSITIVE DIFFERENTIAL YES; Platelet Count 178 K/mm3 (150-450); RBC Distribution Width CV 12.8 % (11.6-14.6); RBC Distribution Width SD 47.1 fl (35.1-43.9); Red Blood Count 3.98 M/mm3 (4.6-6.2); White Blood Count 3.6 K/mm3 (4.4-11.0)
[2020-05-03 15:34] LABS: Differential Indicated SCAN CRITERIA MET
[2020-05-03 16:01] LABS: Cholesterol 138 mg/dL (200); High Density Lipoprotein 37 mg/dL; Triglycerides 442 mg/dL
[2020-05-03 16:27] LABS: Platelet Estimate ADEQUATE (ADEQ); Red Cell Morphology NORM C+C NORMAL (NORM C&C)
[2020-05-04 11:25] LABS: Pathologist Review Reviewed
== END ==
PROVIDERS: PCP Family Medicine; Referring Provider Radiology Radiation Oncology; Visit Provider Radiology Radiation Oncology
DX: C61 Malignant neoplasm of prostate (principal); E78.5 Hyperlipidemia, unspecified
CPT/HCPCS: 36415; 80061; 85025

== ENCOUNTER → 2020-05-25 11:45 | Outpatient (CLI) | payer MEDICARE, OTHER, SELFPAY ==
[2019-11-10 15:11] VITALS: BMI 47.8
[2020-05-25 15:02] LABS: Absolute Lymphocyte Count 0.49 X10^3/uL (0.83-4.51); Absolute Neutrophil Count 3.3 X10^3/uL (2.0-7.7); Basophil# 0.03 X10^3/uL; Basophil% 0.7 % (0-1); Eosinophil# 0.24 X10^3/uL; Eosinophils% 5.4 % (0-5); Hematocrit 37.3 % (40-54); Hemoglobin 12.3 g/dL (13.0-16.5); Lymphocyte # 0.49 X10^3/ul (4.0); Mean Corpuscular Hgb 33.2 pg (27.0-32.0); Mean Corpuscular Volume 100.8 fL (80-94); Mean Platelet Vol. 9.9 fl (6.2-12.0); Monocyte# 0.42 X10^3/uL; Monocyte% 9.4 % (0-10); NRBC Flagged by Analyzer 0 % (0-5); Neutrophil # 3.27 X10^3/uL (2.7-7.7); Neutrophil % 73.3 % (47-70); POSITIVE DIFFERENTIAL YES; Platelet Count 223 K/mm3 (150-450); RBC Distribution Width CV 13.3 % (11.6-14.6); RBC Distribution Width SD 48.1 fl (35.1-43.9); White Blood Count 4.5 K/mm3 (4.4-11.0)
[2020-05-25 15:03] LABS: Differential Indicated SCAN CRITERIA MET
[2020-05-25 15:25] LABS: Differential Comment SCANNED
== END ==
PROVIDERS: PCP Family Medicine; Referring Provider Radiology Radiation Oncology; Visit Provider Radiology Radiation Oncology
DX: C61 Malignant neoplasm of prostate (principal)
CPT/HCPCS: 36415; 85025

== ENCOUNTER → 2020-08-11 10:38 | Outpatient (CLI) | payer MEDICARE, OTHER, SELFPAY ==
[2019-11-10 15:11] VITALS: BMI 47.8
[2020-08-11 13:22] LABS: ALB/GLOB Ratio 1.1 RATIO (0.9-2.4); AST(SGOT) 19 U/L (15-37); Alanine Aminotransfer ALT/SGPT 28 U/L (16-61); Albumin, Serum 3.9 g/dL (3.2-5.0); Alkaline Phosphatase 87 U/L (45-117); Anion Gap 6 (5-15); BUN 26 mg/dL (7-18); BUN/Creat Ratio 22.8 RATIO (10-20); Calcium,Total 9.2 mg/dL (8.5-10.1); Chloride 102 mmol/L (98-107); Cholesterol 132 mg/dL (200); Creatinine, Serum 1.14 mg/dL (0.70-1.30); EST Glomerular Filtration Rate 68 mL/min (>60); Est Glom Filt Rate - Afr Amer 82 mL/min (>60); Globulin 3.6 g/dL (2.2-4.2); Glucose 137 mg/dL (74-106); High Density Lipoprotein 36 mg/dL; Potassium 4.3 mmol/L (3.5-5.1); Protein, Total 7.5 g/dL (6.4-8.2); Sodium Level 138 mmol/L (136-145); Thyroid Stim Hormone (TSH) 2.57 uIU/mL (0.358-3.74); Triglycerides 216 mg/dL; Very Low Density Lipoprotein 43 mg/dL (5-40)
== END ==
PROVIDERS: PCP Family Medicine; Referring Provider Family Medicine; Visit Provider Family Medicine
DX: I10 Essential (primary) hypertension (principal); R97.20 Elevated prostate specific antigen [PSA]; E11.9 Type 2 diabetes mellitus without complications
CPT/HCPCS: 36415; 80053; 80061; 84403; 84443; 86769

== ENCOUNTER → 2020-09-05 14:46 | Outpatient (CLI) | payer MEDICARE, OTHER, SELFPAY ==
[2019-11-10 15:11] VITALS: BMI 47.8
[2020-09-05 16:43] LABS: PSA,Total- Diagnostic < 0.01 ng/mL (0.0-4.0)
== END ==
PROVIDERS: PCP Family Medicine; Referring Provider Urology; Visit Provider Urology
DX: C61 Malignant neoplasm of prostate (principal)
CPT/HCPCS: 36415; 84153

== ENCOUNTER → 2020-10-26 09:11 | Outpatient (CLI) | payer MEDICARE, OTHER, SELFPAY ==
[2020-10-26 12:04] LABS: Hematocrit 39.2 % (40-54); Hemoglobin 12.8 g/dL (13.0-16.5); Mean Corp Hgb Conc 32.7 g/dL (32-36); Mean Corpuscular Hgb 32.6 pg (27.0-32.0); Mean Corpuscular Volume 99.7 fL (80-94); Mean Platelet Vol. 9.5 fl (6.2-12.0); Platelet Count 233 K/mm3 (150-450); RBC Distribution Width CV 12.7 % (11.6-14.6); RBC Distribution Width SD 46.1 fl (35.1-43.9); Red Blood Count 3.93 M/mm3 (4.6-6.2)
[2020-10-26 12:17] LABS: Color, Urine Yellow (Yellow); Glucose, Dipstick 1000 mg/dl (Normal); Ketone-Dipstick Negative (Negative); Leukocyte Esterase-Dipstick Negative /ul (Negative); Nitrite-Dipstick Negative (Negative); Occult Blood-Urine Negative /ul (Negative); Protein-Dipstick 30 mg/dl (Negative); Urine Bilirubin Dipstick Negative (Negative); Urine Clarity Clear (Clear); Urine Urobilinogen Normal (Normal); Urine pH 6.5 (5.0 - 8.0)
[2020-10-26 12:18] LABS: Anion Gap 5 (5-15); BUN 26 mg/dL (7-18); Calcium,Total 9.3 mg/dL (8.5-10.1); Chloride 101 mmol/L (98-107); Creatinine, Serum 1.04 mg/dL (0.70-1.30); EST Glomerular Filtration Rate 76 mL/min (>60); Est Glom Filt Rate - Afr Amer 91 mL/min (>60); Glucose 167 mg/dL (74-106); International Normalized Ratio 1.2; Potassium 4.3 mmol/L (3.5-5.1); Prothrombin Time (Protime)PT. 14.4 SECONDS (11.7-14.9); Sodium Level 137 mmol/L (136-145)
[2020-10-26 12:19] LABS: Partial Thromboplast Time 31.5 Seconds (24.1-36.2)
== END ==
PROVIDERS: PCP Family Medicine; Referring Provider Orthopaedic Surgery; Visit Provider Orthopaedic Surgery
DX: E11.9 Type 2 diabetes mellitus without complications (principal); R39.9 Unspecified symptoms and signs involving the genitourinary system; I10 Essential (primary) hypertension; G47.30 Sleep apnea, unspecified
CPT/HCPCS: 36415; 80048; 81002; 85027; 85610; 85730; 87077; 87086; 87088; 87186

== ENCOUNTER → 2020-12-15 10:09 | Outpatient (CLI) | payer MEDICARE, OTHER, SELFPAY ==
[2020-12-15 12:33] LABS: PSA,Total- Diagnostic < 0.01 ng/mL (0.0-4.0)
== END ==
PROVIDERS: PCP Family Medicine; Referring Provider Urology; Visit Provider Urology
DX: C61 Malignant neoplasm of prostate (principal)
CPT/HCPCS: 36415; 84153

== ENCOUNTER → 2020-12-29 10:01 | Outpatient (CLI) | payer MEDICARE, OTHER, SELFPAY ==
[2020-12-29 15:31] LABS: Absolute Lymphocyte Count 0.56 X10^3/uL (0.83-4.51); Absolute Neutrophil Count 3.4 X10^3/uL (2.0-7.7); Basophil# 0.02 X10^3/uL; Basophil% 0.4 % (0-1); Eosinophil# 0.37 X10^3/uL; Eosinophils% 7.6 % (0-5); Hematocrit 33.8 % (40-54); Hemoglobin 10.7 g/dL (13.0-16.5); Lymphocyte # 0.56 X10^3/ul (0.83-4.51); Lymphocyte % 11.5 % (19-41); Mean Corp Hgb Conc 31.7 g/dL (32-36); Mean Corpuscular Hgb 31.3 pg (27.0-32.0); Mean Corpuscular Volume 98.8 fL (80-94); Mean Platelet Vol. 9.3 fl (6.2-12.0); Monocyte# 0.56 X10^3/uL; Monocyte% 11.5 % (0-10); NRBC Flagged by Analyzer 0 % (0-5); Neutrophil # 3.37 X10^3/uL (2.7-7.7); Neutrophil % 68.8 % (47-70); POSITIVE DIFFERENTIAL YES; Platelet Count 349 K/mm3 (150-450); RBC Distribution Width CV 14.4 % (11.6-14.6); RBC Distribution Width SD 51.9 fl (35.1-43.9); Red Blood Count 3.42 M/mm3 (4.6-6.2); White Blood Count 4.9 K/mm3 (4.4-11.0)
[2020-12-29 15:36] LABS: Differential Indicated SCAN CRITERIA MET
[2020-12-29 15:46] LABS: Thyroid Stim Hormone (TSH) 2.88 uIU/mL (0.358-3.74)
[2020-12-29 16:08] LABS: Platelet Estimate ADEQUATE (ADEQ); Red Cell Morphology NORM C+C NORMAL (NORM C&C)
[2020-12-29 16:24] LABS: BNP,B-Type NATRIURETIC PEPTIDE 153.3 pg/mL (0-100)
== END ==
PROVIDERS: PCP Family Medicine; Referring Provider Family Medicine; Visit Provider Family Medicine
DX: M79.89 Other specified soft tissue disorders (principal)
CPT/HCPCS: 36415; 83880; 84443; 85025

== ENCOUNTER 2021-03-14 12:56 | Outpatient (CLI) | payer MEDICARE, OTHER, SELFPAY ==
[2021-03-14 15:29] LABS: PSA,Total- Diagnostic < 0.01 ng/mL (0.0-4.0)
== END 2021-03-14 23:59 | disposition short-term general hospital (02) ==
LOC: BIMLAB 12:58
PROVIDERS: PCP Family Medicine; Referring Provider Urology; Visit Provider Urology
DX: C61 Malignant neoplasm of prostate (principal)
CPT/HCPCS: 36415; 84153

== ENCOUNTER 2021-05-11 09:45 | Outpatient (CLI) | payer MEDICARE, OTHER, SELFPAY ==
[2021-05-11 12:09] LABS: Absolute Lymphocyte Count 0.66 X10^3/uL (0.83-4.51); Absolute Neutrophil Count 2.3 X10^3/uL (2.0-7.7); Basophil# 0.01 X10^3/uL; Basophil% 0.3 % (0-1); Eosinophil# 0.13 X10^3/uL; Eosinophils% 3.7 % (0-5); Hematocrit 40.3 % (40-54); Hemoglobin 13.1 g/dL (13.0-16.5); Lymphocyte # 0.66 X10^3/ul (0.83-4.51); Lymphocyte % 18.9 % (19-41); Mean Corp Hgb Conc 32.5 g/dL (32-36); Mean Corpuscular Hgb 32.5 pg (27.0-32.0); Mean Platelet Vol. 9.5 fl (6.2-12.0); Monocyte% 11.4 % (0-10); NRBC Flagged by Analyzer 0 % (0-5); Neutrophil # 2.29 X10^3/uL (2.7-7.7); Neutrophil % 65.4 % (47-70); Platelet Count 255 K/mm3 (150-450); RBC Distribution Width CV 13.6 % (11.6-14.6); RBC Distribution Width SD 50.1 fl (35.1-43.9); RET-HE 36.9 pg (30-35); Red Blood Count 4.03 M/mm3 (4.6-6.2); White Blood Count 3.5 K/mm3 (4.4-11.0)
[2021-05-11 12:34] LABS: AST(SGOT) 10 U/L (15-37); Alanine Aminotransfer ALT/SGPT 23 U/L (16-61); Albumin, Serum 3.8 g/dL (3.2-5.0); Alkaline Phosphatase 90 U/L (45-117); Anion Gap 4 (5-15); BUN 27 mg/dL (7-18); BUN/Creat Ratio 25.5 RATIO (10-20); Chloride 101 mmol/L (98-107); Cholesterol 205 mg/dL (200); Creatinine, Serum 1.06 mg/dL (0.70-1.30); EST Glomerular Filtration Rate 74 mL/min (>60); Est Glom Filt Rate - Afr Amer 89 mL/min (>60); Ferritin 110 ng/mL (26-388); Globulin 3.8 g/dL (2.2-4.2); Glucose 169 mg/dL (74-106); High Density Lipoprotein 39 mg/dL; Potassium 4.1 mmol/L (3.5-5.1); Protein, Total 7.6 g/dL (6.4-8.2); Sodium Level 136 mmol/L (136-145); Triglycerides 256 mg/dL; Very Low Density Lipoprotein 51 mg/dL (5-40)
== END 2021-05-11 23:59 | disposition home or self-care (01) ==
LOC: BIMLAB 09:46
PROVIDERS: PCP Family Medicine; Referring Provider Family Medicine; Visit Provider Family Medicine
DX: I10 Essential (primary) hypertension (principal); E11.69 Type 2 diabetes mellitus with other specified complication; D64.9 Anemia, unspecified
CPT/HCPCS: 36415; 80053; 80061; 82728; 85025; 85045

== ENCOUNTER → 2021-07-06 | Outpatient (CLI) | payer MEDICARE, OTHER, SELFPAY ==
[2021-07-06 12:54] LABS: PSA,Total- Diagnostic < 0.01 ng/mL (0.0-4.0)
== END | disposition home or self-care (01) ==
LOC: BIMLAB 11:47
PROVIDERS: PCP Family Medicine; Referring Provider Urology; Visit Provider Urology
DX: C61 Malignant neoplasm of prostate (principal)
CPT/HCPCS: 36415; 84153

== ENCOUNTER → 2021-11-08 | Outpatient (CLI) | payer MEDICARE, OTHER, SELFPAY ==
[2021-11-08 12:18] LABS: Absolute Lymphocyte Count 0.72 X10^3/uL (0.83-4.51); Absolute Neutrophil Count 2.8 X10^3/uL (2.0-7.7); Basophil# 0.01 X10^3/uL; Basophil% 0.2 % (0-1); Eosinophil# 0.18 X10^3/uL; Eosinophils% 4.3 % (0-5); Hematocrit 39.1 % (40-54); Hemoglobin 12.7 g/dL (13.0-16.5); Lymphocyte # 0.72 X10^3/ul (0.83-4.51); Lymphocyte % 17.3 % (19-41); Mean Corp Hgb Conc 32.5 g/dL (32-36); Mean Corpuscular Hgb 33.4 pg (27.0-32.0); Mean Corpuscular Volume 102.9 fL (80-94); Mean Platelet Vol. 9.7 fl (6.2-12.0); Monocyte# 0.47 X10^3/uL; Monocyte% 11.3 % (0-10); NRBC Flagged by Analyzer 0 % (0-5); Neutrophil # 2.76 X10^3/uL (2.7-7.7); Neutrophil % 66.2 % (47-70); Platelet Count 234 K/mm3 (150-450); RBC Distribution Width CV 12.7 % (11.6-14.6); RBC Distribution Width SD 47.8 fl (35.1-43.9); White Blood Count 4.2 K/mm3 (4.4-11.0)
[2021-11-08 12:30] LABS: Vitamin B12 329 pg/mL (211-911)
[2021-11-08 13:53] LABS: Anion Gap 8 (5-15); BUN 27 mg/dL (7-18); BUN/Creat Ratio 21.1 RATIO (10-20); Calcium,Total 9.4 mg/dL (8.5-10.1); Chloride 97 mmol/L (98-107); Cholesterol 232 mg/dL (200); Creatinine, Serum 1.28 mg/dL (0.70-1.30); EST Glomerular Filtration Rate 59 mL/min (>60); Est Glom Filt Rate - Afr Amer 72 mL/min (>60); Glucose 185 mg/dL (74-106); High Density Lipoprotein 35 mg/dL; Potassium 4.5 mmol/L (3.5-5.1); Sodium Level 135 mmol/L (136-145); Triglycerides 511 mg/dL
== END | disposition home or self-care (01) ==
LOC: BIMLAB 09:58
PROVIDERS: PCP Family Medicine; Referring Provider Family Medicine; Visit Provider Family Medicine
DX: E11.9 Type 2 diabetes mellitus without complications (principal); D64.9 Anemia, unspecified
CPT/HCPCS: 36415; 80048; 80061; 82607; 85025